=== PATIENT | male | born 1960 | race Caucasian/White ===

== ENCOUNTER 2024-04-30 19:14 | Inpatient (IN) | payer OTHER, MEDICARE ==
[~2024-04-30] VITALS: Ht 180.3 cm; Wt 71.8 kg
[~2024-04-30 19:14] MED LIST: ARTIFICIAL SALIVA PO; ASPI-611 PO; CHOL2000 PO; DOCU-28 PO; HYDR-4353 PO; LACT-373 PO; METF-438 PO; OMEP20CA15 PO; QUET400T5 PO; SIMV-342 PO; TRAZ-251 PO; [UNRECOGNIZED DRUG - CODE] PO
[2024-04-30] MEDS: insulin regular, human 10 units/0.1 ml syringe IV STA (21:03)
[2024-04-30 21:11] LABS: BASOPHILS # (AUTO) 0.1 X10'3 (0-0.2); BASOPHILS % (AUTO) 1.1 % (0-1); EOSINOPHILS # (AUTO) 0.1 X10'3 (0-0.9); EOSINOPHILS % (AUTO) 1.4 % (0-6); HEMATOCRIT 42.7 % (42.0-52.0); HEMOGLOBIN 14.8 g/dl (14.0-17.9); LYMPHOCYTES # (AUTO) 2.5 X10'3 (1.1-4.8); MEAN CORPUSCULAR HGB CONC 34.6 g/dL (33.0-36.5); MEAN CORPUSCULAR VOLUME 92.5 FL (78-98); MEAN PLATELET VOLUME 9.2 FL (7.4-10.4); MONOCYTES # (AUTO) 0.8 X10'3 (0-0.9); MONOCYTES % (AUTO) 9.3 % (2-12); NEUTROPHILS % (AUTO) 59.2 % (42-75); PLATELET COUNT 288 X10'3 (140-440); RED BLOOD COUNT 4.61 X10'6 (4.70-6.10); WHITE BLOOD COUNT 8.5 X10'3 (4.5-11.0)
[2024-04-30 21:25] LABS: ALANINE AMINOTRANSFERASE 23 U/L (12-78); ALBUMIN 3.4 G/DL (3.4-5.0); ALBUMIN/GLOBULIN RATIO 0.9 (1.1-1.5); ALKALINE PHOSPHATASE 150 IU/L (46-116); ANION GAP 8 (8-16); ASPARTATE AMINO TRANSFERASE 6 U/L (10-37); BILIRUBIN,TOTAL 0.6 MG/DL (0.1-1.0); BLOOD UREA NITROGEN 10 MG/DL (7-18); BUN/CREATININE RATIO 15.9 (10.0-20.0); CALCIUM 9.5 MG/DL (8.5-10.1); CHLORIDE 98 MMOL/L (99-107); CREATININE 0.63 MG/DL (0.60-1.10); GLUCOSE 344 MG/DL (70-104); SODIUM 135 MMOL/L (135-145); TOTAL PROTEIN 7.3 G/DL (6.4-8.2); eCRCL 122 ML/MIN; eGFR > 90 ML/MIN
[2024-04-30] MEDS: normal saline 1000ML IV soln IVB ONE (21:31)
[2024-04-30 21:32] LABS: LIPASE 98 U/L (16-77); PRO BRAIN NATRIURETIC PEPTIDE 67 PG/ML (0-125)
[2024-04-30] MEDS ORDERED: potassium Cl 40MEQ/1/2NS 520ml 520 ML IV PRN (23:55)
[2024-04-30] MEDS ORDERED: ondansetron/PF 4mg/2ml inj IV PRN (23:55)
[2024-04-30] MEDS ORDERED: acetaminophen 325mg tablet PO PRN (23:55)
[2024-04-30] MEDS ORDERED: magnesium sulf-water 2g/50mL 50 ML IV PRN (23:55)
[2024-04-30] MEDS ORDERED: magnesium hydroxide 30ml (MOM) UD suspension PO PRN (23:55)
[2024-04-30] MEDS ORDERED: potassium Cl 20 mEq SR tablet PO PRN (23:55)
[2024-04-30] MEDS ORDERED: magnesium sulf-water 4G/100mL 100 ML IV PRN (23:55)
[2024-04-30] MEDS ORDERED: mag hydrox/Alum hydrox/simeth 30ml oral suspension PO PRN (23:55)
[2024-05-01] MEDS ORDERED: iohexol 350MG/ML 100ml bottle IV ONE (00:17)
[2024-05-01] MEDS: normal saline 1000ml 1,000 ML IV ONE (01:35)
[2024-05-01 01:40] LABS: BILIRUBIN,URINE NEGATIVE (Neg); GLUCOSE, URINE >=1000 mg/dl (Neg); KETONES,URINE NEGATIVE (Neg); LEUKOCYTE ESTERASE ,URINE NEGATIVE (Neg); NITRITES, URINE NEGATIVE (Neg); OCCULT BLOOD,URINE NEGATIVE (Neg); PH,URINE 5.5 (4.8-8.0); PROTEIN,URINE NEGATIVE (Neg); UROBILINOGEN,URINE 0.2 E.U/dL (0.2-1.0)
[2024-05-01 01:48] LABS: CLARITY,URINE CLEAR (Clear); COLOR,URINE YELLOW (Yellow); UA COLLECTION TYPE CLN CATCH MIDSTREAM
[2024-05-01 01:50] LABS: BACTERIA,URINE NONE SEEN /HPF (Neg); RBC,URINE 0-2 /HPF (0-2); SQUAMOUS EPITHELIAL CELL,UR FEW /LPF (FEW); WBC,URINE 0-4 /HPF (0-4)
[2024-05-01] MEDS: normal saline 1000ml 1,000 ML IV SCH (01:54)
[2024-05-01] MEDS ORDERED: dextrose 50%-water 50ml dispensing syringe IV PRN ×2 (01:55)
[2024-05-01] MEDS ORDERED: DEXTROSE 15 GM of carb/4 tabs (each vial/BOTTLE has 4 tablets) PO PRN ×2 (01:55)
[2024-05-01] MEDS ORDERED: glucagon, human recombinant 1mg kit SUBCUT PRN (01:55)
[2024-05-01 01:57] LABS: URINE AMPHETAMINE SCREEN NEGATIVE (Neg); URINE BARBITUATE SCREEN NEGATIVE (Neg); URINE BENZODIAZEPINES SCREEN NEGATIVE (Neg); URINE CANNABINOID SCREEN NEGATIVE (Neg); URINE COCAINE SCREEN NEGATIVE (Neg); URINE METHADONE SCREEN NEGATIVE (Neg); URINE OPIATE SCREEN NEGATIVE (Neg); URINE PHENCYCLIDINE SCREEN NEGATIVE (Neg)
[2024-05-01] MEDS ORDERED: QUET400T13 PO (02:20)
[2024-05-01 04:47] LABS: ALANINE AMINOTRANSFERASE 21 U/L (12-78); ALBUMIN/GLOBULIN RATIO 0.9 (1.1-1.5); ALKALINE PHOSPHATASE 118 IU/L (46-116); ANION GAP 7 (8-16); ASPARTATE AMINO TRANSFERASE 7 U/L (10-37); BILIRUBIN,TOTAL 0.8 MG/DL (0.1-1.0); BLOOD UREA NITROGEN 10 MG/DL (7-18); BUN/CREATININE RATIO 23.3 (10.0-20.0); CALCIUM 8.7 MG/DL (8.5-10.1); CHLORIDE 102 MMOL/L (99-107); CHOL/HDL RATIO 2.3 (0.00-4.99); CHOLESTEROL 102 MG/DL (0-200); CREATININE 0.43 MG/DL (0.60-1.10); GLUCOSE 169 MG/DL (70-104); HDL CHOLESTEROL 45 MG/DL (35-60); LDL CHOLESTEROL 43 MG/DL (50-100); LIPASE 49 U/L (16-77); MAGNESIUM 1.4 MG/DL (1.5-2.4); PHOSPHORUS 3.8 MG/DL (2.3-4.5); POTASSIUM 3.3 MMOL/L (3.5-5.1); SODIUM 137 MMOL/L (135-145); TOTAL CARBON DIOXIDE 28.1 MMOL/L (24-32); TOTAL PROTEIN 6.2 G/DL (6.4-8.2); TRIGLYCERIDES 93 MG/DL (20-135); eCRCL 179 ML/MIN; eGFR > 90 ML/MIN
[2024-05-01 04:48] LABS: BASOPHILS # (AUTO) 0.1 X10'3 (0-0.2); BASOPHILS % (AUTO) 0.8 % (0-1); EOSINOPHILS # (AUTO) 0.2 X10'3 (0-0.9); EOSINOPHILS % (AUTO) 1.7 % (0-6); HEMATOCRIT 37.5 % (42.0-52.0); HEMOGLOBIN 13.3 g/dl (14.0-17.9); LYMPHOCYTES % (AUTO) 39.1 % (21-51); MEAN CORPUSCULAR HEMOGLOBIN 32.2 PG (27.0-31.0); MEAN CORPUSCULAR HGB CONC 35.5 g/dL (33.0-36.5); MEAN CORPUSCULAR VOLUME 90.8 FL (78-98); MEAN PLATELET VOLUME 9.1 FL (7.4-10.4); MONOCYTES # (AUTO) 0.8 X10'3 (0-0.9); MONOCYTES % (AUTO) 7.7 % (2-12); NEUTROPHILS # (AUTO) 5.2 X10'3 (1.8-7.7); NEUTROPHILS % (AUTO) 50.7 % (42-75); PLATELET COUNT 239 X10'3 (140-440); RED BLOOD COUNT 4.13 X10'6 (4.70-6.10); RED CELL DISTRIBUTION WIDTH 13.2 % (11.5-14.5); WHITE BLOOD COUNT 10.3 X10'3 (4.5-11.0)
[2024-05-01 05:01] LABS: APTT 24 SECONDS (22-32); PROTHROMBIN TIME 10.9 SECONDS (9.0-12.0)
[2024-05-01 05:08] LABS: HEMOGLOBIN A1C > 12.0 % (4.5-6.2)
[2024-05-01] MEDS: INSULIN LISPRO 100 UNIT/ML INSULN.PEN MULTI-DOSE SQ SCH ×2 (07:22→21:57)
[2024-05-01] MEDS: K and/or MAG REPLACEMENT MC SCH (08:19)
[2024-05-01] MEDS: docusate sod 100mg capsule PO SCH (08:25)
[2024-05-01] MEDS: potassium Cl 20 mEq SR tablet PO PRN (08:25)
[2024-05-01] MEDS: aspirin 81mg, enteric-coated 1 TAB TABLET.DR PO SCH (08:26)
[2024-05-01] MEDS: cholecalciferol (vitamin D3) 1,000 unit (25mcg) tablet PO SCH (08:26)
[2024-05-01] MEDS ORDERED: piperacillin/tazo 4.5gm/100ml 100 ML IV SCH (17:15)
[2024-05-01 17:34] VITALS: RESP 18
[2024-05-01 18:30] VITALS: BP 141/80; PULSE 96; RESP 18; TEMP 97.9; O2SAT 94
[2024-05-01] MEDS: CefTRIAXone/D5W-Rocephin 1gm 50 ML IV SCH (19:56)
[2024-05-01] MEDS: magnesium Cl slow-release 64mg tablet PO PRN (19:56)
[2024-05-01] MEDS: enoxaparin 40mg/0.4ml syringe SQ SCH (19:56)
[2024-05-01] MEDS ORDERED: QUETIAPINE FUMARATE PO SCH (21:00)
[2024-05-01 22:00] VITALS: BP 142/87; PULSE 90; RESP 15; TEMP 98.1; O2SAT 99
[2024-05-01] MEDS: quetiapine 100mg tablet PO SCH (23:56)
[2024-05-02] MEDS: insulin glargine (Lantus) pen - multi-dose SQ SCH (00:05)
[2024-05-02 06:00] VITALS: BP 124/71; PULSE 93; RESP 15; TEMP 98.2; O2SAT 96
[2024-05-02 06:40] LABS: BASOPHILS # (AUTO) 0.1 X10'3 (0-0.2); BASOPHILS % (AUTO) 0.9 % (0-1); EOSINOPHILS # (AUTO) 0.1 X10'3 (0-0.9); EOSINOPHILS % (AUTO) 1.7 % (0-6); HEMATOCRIT 36.4 % (42.0-52.0); HEMOGLOBIN 12.7 g/dl (14.0-17.9); LYMPHOCYTES # (AUTO) 3.2 X10'3 (1.1-4.8); LYMPHOCYTES % (AUTO) 42.7 % (21-51); MEAN CORPUSCULAR HEMOGLOBIN 32.2 PG (27.0-31.0); MEAN CORPUSCULAR HGB CONC 34.8 g/dL (33.0-36.5); MEAN CORPUSCULAR VOLUME 92.5 FL (78-98); MEAN PLATELET VOLUME 8.8 FL (7.4-10.4); MONOCYTES # (AUTO) 0.6 X10'3 (0-0.9); MONOCYTES % (AUTO) 7.5 % (2-12); NEUTROPHILS # (AUTO) 3.5 X10'3 (1.8-7.7); NEUTROPHILS % (AUTO) 47.2 % (42-75); PLATELET COUNT 225 X10'3 (140-440); RED BLOOD COUNT 3.94 X10'6 (4.70-6.10); WHITE BLOOD COUNT 7.5 X10'3 (4.5-11.0)
[2024-05-02 06:55] LABS: APTT 24 SECONDS (22-32); INR 1.1 INR; PROTHROMBIN TIME 11.1 SECONDS (9.0-12.0)
[2024-05-02 07:08] LABS: ALANINE AMINOTRANSFERASE 23 U/L (12-78); ALBUMIN 2.6 G/DL (3.4-5.0); ALBUMIN/GLOBULIN RATIO 0.9 (1.1-1.5); ALKALINE PHOSPHATASE 104 IU/L (46-116); ANION GAP 5 (8-16); ASPARTATE AMINO TRANSFERASE 22 U/L (10-37); BILIRUBIN,TOTAL 0.6 MG/DL (0.1-1.0); BLOOD UREA NITROGEN 11 MG/DL (7-18); BUN/CREATININE RATIO 25.6 (10.0-20.0); CALCIUM 9.1 MG/DL (8.5-10.1); CHLORIDE 106 MMOL/L (99-107); CREATININE 0.43 MG/DL (0.60-1.10); GLUCOSE 195 MG/DL (70-104); MAGNESIUM 1.6 MG/DL (1.5-2.4); PHOSPHORUS 3.5 MG/DL (2.3-4.5); POTASSIUM 3.9 MMOL/L (3.5-5.1); SODIUM 140 MMOL/L (135-145); TOTAL CARBON DIOXIDE 28.8 MMOL/L (24-32); TOTAL PROTEIN 5.6 G/DL (6.4-8.2); eCRCL 179 ML/MIN; eGFR > 90 ML/MIN
[2024-05-02 08:30] VITALS: RESP 15; O2SAT 96
[2024-05-02 10:00] VITALS: BP 94/61; PULSE 91; RESP 14; TEMP 98.7; O2SAT 94
[2024-05-02] MEDS ORDERED: FLU VACC TS2024-25(6MOS UP)/PF 45 MCG/0.5 ML SYRINGE IMVAC ONE (10:00)
[2024-05-02] MEDS: mineral oil 133ml enema RC PRN (15:00)
[2024-05-02] MEDS: acetaminophen 325mg tablet PO PRN (15:00)
[2024-05-02] MEDS ORDERED: albuterol 2.5 MG/3 ML nebule NEB PRN (16:10)
[2024-05-02] MEDS: cefepime 1GM in D5W 50mL 50 ML IV SCH (16:54)
[2024-05-02] MEDS: vancomycin/NS 1 GM ADD-VANTAGE 250 ML IV SCH (17:56)
[2024-05-02 18:00] VITALS: BP 113/75; PULSE 89; RESP 12; TEMP 99.1; O2SAT 94
[2024-05-02 20:00] VITALS: RESP 16; O2SAT 94
[2024-05-02] MEDS: ipratropium/albuterol 3ml nebule NEB SCH (20:00)
[2024-05-02 22:00] VITALS: BP 144/73; PULSE 87; RESP 18; TEMP 99.2; O2SAT 95
[2024-05-02] MEDS: HYDROcodone/acetaminophen 5mg/325mg tablet PO ONE (23:20)
[2024-05-03] VITALS (8 sets, daily range): BP systolic 120–152; BP diastolic 71–90; PULSE 61–93; RESP 14–20; TEMP 98.2–98.9; O2SAT 93–99
[2024-05-03 06:44] LABS: BASOPHILS # (AUTO) 0.1 X10'3 (0-0.2); BASOPHILS % (AUTO) 0.9 % (0-1); EOSINOPHILS # (AUTO) 0.1 X10'3 (0-0.9); EOSINOPHILS % (AUTO) 1.8 % (0-6); HEMATOCRIT 38.4 % (42.0-52.0); HEMOGLOBIN 13.3 g/dl (14.0-17.9); LYMPHOCYTES # (AUTO) 2.6 X10'3 (1.1-4.8); LYMPHOCYTES % (AUTO) 34.5 % (21-51); MEAN CORPUSCULAR HEMOGLOBIN 31.9 PG (27.0-31.0); MEAN CORPUSCULAR HGB CONC 34.5 g/dL (33.0-36.5); MEAN CORPUSCULAR VOLUME 92.5 FL (78-98); MEAN PLATELET VOLUME 8.8 FL (7.4-10.4); MONOCYTES # (AUTO) 0.7 X10'3 (0-0.9); MONOCYTES % (AUTO) 9.6 % (2-12); NEUTROPHILS % (AUTO) 53.2 % (42-75); PLATELET COUNT 223 X10'3 (140-440); RED BLOOD COUNT 4.15 X10'6 (4.70-6.10); RED CELL DISTRIBUTION WIDTH 13.1 % (11.5-14.5); WHITE BLOOD COUNT 7.6 X10'3 (4.5-11.0)
[2024-05-03 06:58] LABS: APTT 23 SECONDS (22-32); INR 1.1 INR
[2024-05-03 07:10] LABS: ALANINE AMINOTRANSFERASE 24 U/L (12-78); ALBUMIN 2.6 G/DL (3.4-5.0); ALBUMIN/GLOBULIN RATIO 0.7 (1.1-1.5); ALKALINE PHOSPHATASE 105 IU/L (46-116); ANION GAP 7 (8-16); ASPARTATE AMINO TRANSFERASE 22 U/L (10-37); BILIRUBIN,TOTAL 0.4 MG/DL (0.1-1.0); BLOOD UREA NITROGEN 18 MG/DL (7-18); CALCIUM 9.2 MG/DL (8.5-10.1); CHLORIDE 104 MMOL/L (99-107); GLUCOSE 174 MG/DL (70-104); MAGNESIUM 1.6 MG/DL (1.5-2.4); PHOSPHORUS 4.3 MG/DL (2.3-4.5); POTASSIUM 3.8 MMOL/L (3.5-5.1); SODIUM 136 MMOL/L (135-145); TOTAL CARBON DIOXIDE 24.8 MMOL/L (24-32); TOTAL PROTEIN 6.2 G/DL (6.4-8.2); eCRCL 154 ML/MIN; eGFR > 90 ML/MIN
[2024-05-03] MEDS ORDERED: HYDROmorphone inj. 0.5 MG/0.5 ML DISP.SYRIN IV PRN ×2 (07:20→20:50)
[2024-05-03] MEDS: HYDROcodone/acetaminophen 5mg/325mg tablet PO PRN (07:57)
[2024-05-03] MEDS ORDERED: iohexol 350MG/ML 100ml bottle IV ONE (10:17)
[2024-05-03] MEDS ORDERED: iohexol 350 MG/ML 50ML vial IV ONE (10:17)
[2024-05-03] MEDS: VANCOMYCIN LEVEL IV ONE (11:30)
[2024-05-03] MEDS: HYDROmorphone/PF 0.2 MG/ML SYRINGE IV PRN (12:37)
[2024-05-03] MEDS: VANCOMYCIN/WATER FOR INJ (PEG) 1.25GM/250 ML IVPB IV SCH (13:26)
[2024-05-03] MEDS: nicotine 21mg patch - 24 hr TD SCH (14:40)
[2024-05-03] MEDS: atorvastatin 10mg tablet PO SCH (16:41)
[2024-05-03] MEDS: cilostazol 50mg tablet PO SCH (16:41)
[2024-05-04] VITALS (7 sets, daily range): BP systolic 104–110; BP diastolic 56–70; PULSE 86–102; RESP 16–20; TEMP 97.7–97.9; O2SAT 92–94
[2024-05-04 05:56] LABS: BASOPHILS # (AUTO) 0.1 X10'3 (0-0.2); BASOPHILS % (AUTO) 0.9 % (0-1); EOSINOPHILS # (AUTO) 0.3 X10'3 (0-0.9); EOSINOPHILS % (AUTO) 3.9 % (0-6); HEMATOCRIT 36.7 % (42.0-52.0); HEMOGLOBIN 12.8 g/dl (14.0-17.9); LYMPHOCYTES # (AUTO) 2.7 X10'3 (1.1-4.8); MEAN CORPUSCULAR HEMOGLOBIN 32.4 PG (27.0-31.0); MEAN CORPUSCULAR HGB CONC 34.9 g/dL (33.0-36.5); MEAN CORPUSCULAR VOLUME 92.8 FL (78-98); MEAN PLATELET VOLUME 8.6 FL (7.4-10.4); MONOCYTES # (AUTO) 0.7 X10'3 (0-0.9); MONOCYTES % (AUTO) 9.7 % (2-12); NEUTROPHILS # (AUTO) 3.3 X10'3 (1.8-7.7); NEUTROPHILS % (AUTO) 47.5 % (42-75); PLATELET COUNT 230 X10'3 (140-440); RED BLOOD COUNT 3.95 X10'6 (4.70-6.10); RED CELL DISTRIBUTION WIDTH 12.7 % (11.5-14.5)
[2024-05-04 06:08] LABS: INR 1.1 INR
[2024-05-04 06:27] LABS: ALANINE AMINOTRANSFERASE 23 U/L (12-78); ALBUMIN 2.6 G/DL (3.4-5.0); ALBUMIN/GLOBULIN RATIO 0.8 (1.1-1.5); ALKALINE PHOSPHATASE 97 IU/L (46-116); ANION GAP 5 (8-16); ASPARTATE AMINO TRANSFERASE 17 U/L (10-37); BILIRUBIN,TOTAL 0.4 MG/DL (0.1-1.0); BLOOD UREA NITROGEN 17 MG/DL (7-18); BUN/CREATININE RATIO 27.9 (10.0-20.0); CALCIUM 8.7 MG/DL (8.5-10.1); CHLORIDE 104 MMOL/L (99-107); CREATININE 0.61 MG/DL (0.60-1.10); GLUCOSE 123 MG/DL (70-104); MAGNESIUM 1.4 MG/DL (1.5-2.4); PHOSPHORUS 4.3 MG/DL (2.3-4.5); POTASSIUM 3.7 MMOL/L (3.5-5.1); SODIUM 136 MMOL/L (135-145); TOTAL CARBON DIOXIDE 27.1 MMOL/L (24-32); TOTAL PROTEIN 5.8 G/DL (6.4-8.2); eCRCL 126 ML/MIN; eGFR > 90 ML/MIN
[2024-05-04] MEDS ORDERED: VANCOMYCIN LEVEL IV ONE (12:30)
[2024-05-04] MEDS ORDERED: PLE50T PO (13:29)
[2024-05-04] MEDS ORDERED: POLY17PO10 PO (13:29)
[2024-05-04] MEDS ORDERED: LACT1CAP26 PO (13:29)
[2024-05-04] MEDS ORDERED: DOCU100C40 PO (13:29)
[2024-05-04] MEDS ORDERED: ATOR10TA PO (13:29)
[2024-05-04] MEDS ORDERED: ALBU8HFA INH (13:42)
[2024-05-04] MEDS ORDERED: CEFD300C3 PO (13:42)
[2024-05-04] MEDS ORDERED: BUDE10.2 INH (13:42)
== END 2024-05-04 17:00 | disposition home or self-care (01) | DRG 872 ==
LOC: ER 19:15 → ED HOLD 05-01 00:04 → EDBEDREQ 05-01 16:08 → ORTHO 4S 05-01 16:45
PROVIDERS: ADMIT Internal Medicine Critical Care Medicine; ATTEND Family Medicine
PROC: B32T1ZZ Computerized Tomography (CT Scan) of Left Pulmonary Artery using Low Osmolar Contrast (ICD-10-PCS; principal; 2024-05-01)
PROC: B3201ZZ Computerized Tomography (CT Scan) of Thoracic Aorta using Low Osmolar Contrast (ICD-10-PCS; 2024-05-01)
PROC: B32S1ZZ Computerized Tomography (CT Scan) of Right Pulmonary Artery using Low Osmolar Contrast (ICD-10-PCS; 2024-05-01)
PROC: B42H1ZZ Computerized Tomography (CT Scan) of Bilateral Lower Extremity Arteries using Low Osmolar Contrast (ICD-10-PCS; 2024-05-03)
DX: A41.9 Sepsis, unspecified organism (principal); E87.20 Acidosis, unspecified; L03.116 Cellulitis of left lower limb; L03.115 Cellulitis of right lower limb; L97.528 Non-pressure chronic ulcer of other part of left foot with other specified severity; L97.518 Non-pressure chronic ulcer of other part of right foot with other specified severity; C19 Malignant neoplasm of rectosigmoid junction; E78.00 Pure hypercholesterolemia, unspecified; K21.9 Gastro-esophageal reflux disease without esophagitis; I10 Essential (primary) hypertension; E11.51 Type 2 diabetes mellitus with diabetic peripheral angiopathy without gangrene; E11.621 Type 2 diabetes mellitus with foot ulcer; J44.9 Chronic obstructive pulmonary disease, unspecified; N20.0 Calculus of kidney; K56.41 Fecal impaction; I73.1 Thromboangiitis obliterans [Buerger's disease]; Z79.82 Long term (current) use of aspirin; Z79.84 Long term (current) use of oral hypoglycemic drugs; Z79.899 Other long term (current) drug therapy; Z88.0 Allergy status to penicillin
CPT/HCPCS: 36415; 70450; 71045; 71275; 73700; 73706; 74177; 80053; 80061; 80202; 80305; 81001; 82948; 83036; 83605; 83690; 83735; 83880; 84100; 84145; 84484; 85025; 85610; 85730; 87040; 87070; 87077; 87081; 87186; 93005; 93306; 93925; 93970; 94760; 97110; 97161; 97530; 99285; A4314; G0378; J0692; J0696; J1171; J1650; J1815; J3370; J3372; J7030; Q9967